=== PATIENT | female | born 1955 | race Caucasian/White ===

== ENCOUNTER 2019-04-03 14:45 | Observation (INO) | payer MEDICARE, OTHER ==
[~2019-04-03] VITALS: Ht 160 cm; Wt 63.1 kg
[~2019-04-03 14:45] MED LIST: ASPIRIN EC81 MG PO; FIBER0.52 GM PO; FISH OIL 1,2001 EACH PO; FLAXSEED OIL1000 M1 PO; FLUTICASONE PRO16 GM NS; GLUCOSAMINE &1 EAC1 PO; KONDREMUL2.5 ML/5 M PO; LEVOTHYROXINE75 MCG PO; LISINOPRIL10 MG PO; MACROBID 100 M100 MG PO; MOTRIN IB200 MG PT; MULTIVITAMINS1 EAC7 PO; NORCO 5-325 TA1 EACH PO; RESTASIS1 DROP OD; SENNA-S TABLET1 EACH PO; TRAZODONE HCL50 MG PO
[2019-04-04] MEDS ORDERED: LACTULOSE10 GM/152 PO (07:48)
[2019-04-04] MEDS ORDERED: MIRALAX17 GM PO (07:49)
[2019-04-04] MEDS ORDERED: SYNTHROID50 MCG PO (10:41)
== END 2019-04-04 11:20 | disposition home or self-care (01) ==
LOC: ED 14:45 → MS 14:47
PROVIDERS: ADMIT Internal Medicine
DX: K62.89 Other specified diseases of anus and rectum (principal); K59.09 Other constipation; R33.9 Retention of urine, unspecified; I10 Essential (primary) hypertension; E03.9 Hypothyroidism, unspecified; D72.829 Elevated white blood cell count, unspecified; Z88.0 Allergy status to penicillin; Z79.82 Long term (current) use of aspirin; Z79.51 Long term (current) use of inhaled steroids; Z79.899 Other long term (current) drug therapy; Z85.79 Personal history of other malignant neoplasms of lymphoid, hematopoietic and related tissues
CPT/HCPCS: 36415; 74177; 80053; 81001; 83605; 83690; 83735; 85025; 99285-25; G0378; J2405; J7040; J7120; Q9967

== ENCOUNTER 2022-02-27 10:02 | Emergency (ER) | payer MEDICARE, OTHER ==
[~2022-02-27] VITALS: Ht 160 cm; Wt 61.7 kg
[~2022-02-27 10:02] MED LIST changes: +LACTULOSE10 GM/152 PO; +MIRALAX17 GM PO; +SYNTHROID50 MCG PO
[2022-02-27] MEDS ORDERED: MAGNESIUM250 M1 PO (10:22)
--- NOTE | 2022-03-02 08:54 | EKG ---
[facility] [address] [place] [address] Signed Normal sinus rhythm with sinus arrhythmia Left bundle branch block Abnormal ECG When compared with ECG of 10-MAR-2017 12:25, Left bundle branch block is now present Confirmed by DANNY FIERRO MD ([id number]) on 03/02/2022 8:54:17 AM Electronically Signed By: DANNY FIERRO MD 03/02/22 0854 PATIENT NAME: LAURA LYONS JOHN Electrocardiogram DATE OF : 51 PHYSICIAN: DANNY FIERRO MD REPORT #: [id number] REPORT IS CONFIDENTIAL AND NOT TO BE RELEASED WITHOUT AUTHORIZATION
== END 2022-02-27 17:00 | disposition short-term general hospital (02) ==
LOC: ED 10:02
DX: I21.4 Non-ST elevation (NSTEMI) myocardial infarction (principal); Z88.0 Allergy status to penicillin; Z79.899 Other long term (current) drug therapy; Z79.82 Long term (current) use of aspirin; Z20.822 Contact with and (suspected) exposure to COVID-19
CPT/HCPCS: 36415; 71045; 80053; 83880; 84484; 85025; 87502; 93005; 93010; 96374; 99285-25; C9803; J1644; U0003

== ENCOUNTER 2022-03-17 13:34 | Emergency (ER) | payer MEDICARE, OTHER ==
[~2022-03-17] VITALS: Ht 160 cm; Wt 62.0 kg
[~2022-03-17 13:34] MED LIST changes: +MAGNESIUM250 M1 PO
[2022-03-17] MEDS ORDERED: INVOKANA100 MG PO (13:55)
[2022-03-17] MEDS ORDERED: PRAVASTATIN SOD80 MG PO (13:55)
[2022-03-17] MEDS ORDERED: SPIRONOLACTONE25 MG PO (13:55)
[2022-03-17] MEDS ORDERED: METOPROLOL SUCC25 MG PO (13:55)
--- OUTSIDE RECORDS SUMMARY | 2022-03-17 14:13 | XMS ---
PreManage Notification: LAURA LYONS [employer] Consultant Events No recent Security Events currently on file CRITERIA MET - [facility] - 2 Visits in 30 Days CARE PROVIDERS There are no care providers on record at this time. Ángel has no Care Guidelines for this patient. [place] VISIT COUNT (12 MO.) [facility] NOTE: Visits indicate total known visits. ED/C VISIT TRACKING (12 MO.) [facility] COMPLAINT: - ALLERGIC REACTION 03/12/2022 12:02 [facility] TYPE: Emergency DIAGNOSES: - Medical Clearance 02/27/2022 10:02 [facility] Guerra TYPE: Emergency COMPLAINT: - CHEST PAIN DIAGNOSES: - group home (current) use of aspirin - Allergy status to penicillin - Contact with and (suspected) exposure to COVID-19 - Other ferry terminal supervisor (current) drug therapy - Shortness of breath - Non-ST elevation (NSTEMI) myocardial infarction INPATIENT VISIT TRACKING (12 MO.) 03/02/2022 11:49 [facility] TYPE: Transplant DIAGNOSES: - Hyperglycemia, unspecified - Acute kidney failure, unspecified - Acute combined systolic (congestive) and diastolic (congestive) heart failure - Acute on chronic systolic (congestive) heart failure - Personal history of other diseases of the circulatory system - Multiple myeloma in remission - Essential (primary) hypertension - Unspecified visual disturbance - Presence of aortocoronary bypass graft - Atrioventricular block, complete - Ischemic cardiomyopathy - Unspecified right bundle-branch block - Atherosclerotic heart disease of [place] coronary artery without angina pectoris - Hyperlipidemia, unspecified - Unspecified systolic (congestive) heart failure - CAD 02/27/2022 18:34 [facility] [place] TYPE: Medical Surgical COMPLAINT: - NSTEMI; ELEV TROPONIN; CHEST PAIN DIAGNOSES: 0. Chest pain, unspecified 1. Non-ST elevation (NSTEMI) myocardial infarction 2. Multiple myeloma in remission 3. Atherosclerotic heart disease of [place] coronary artery with unstable angina pectoris 4. Hypothyroidism, unspecified 5. Essential (primary) hypertension 6. Left bundle-branch block, unspecified 7. Allergy status to penicillin 8. Family history of ischemic heart disease and other diseases of the circulatory system 9. group home (current) use of aspirin 10. Other shelter (current) drug therapy [email or web address]
[2022-03-17] MEDS ORDERED: PREDNISONE20 MG PO (18:51)
== END 2022-03-17 19:10 | disposition home or self-care (01) ==
LOC: ED 13:34
DX: T78.1XXA Other adverse food reactions, not elsewhere classified, initial encounter (principal); L27.2 Dermatitis due to ingested food; Z95.1 Presence of aortocoronary bypass graft; Z95.0 Presence of cardiac pacemaker; Z88.0 Allergy status to penicillin; Z91.018 Allergy to other foods; Z88.8 Allergy status to other drugs, medicaments and biological substances; Z79.82 Long term (current) use of aspirin; Z79.899 Other long term (current) drug therapy
CPT/HCPCS: 94640; J2930; J7030